=== PATIENT | female | born 1960 | race African-American/Black ===

== ENCOUNTER 2018-04-15 03:52 | Emergency (ER) | payer MEDICAID ==
[~2018-04-15] VITALS: Ht 165.1 cm; Wt 59.0 kg
[2018-04-15 04:17] VITALS: BP 155/83
== END 2018-04-15 07:29 | disposition left against medical advice (07) ==
LOC: ER 03:52
DX: F41.9 Anxiety disorder, unspecified (principal); Z53.21 Procedure and treatment not carried out due to patient leaving prior to being seen by health care provider

== ENCOUNTER 2018-12-20 11:42 | Emergency (ER) | payer MEDICAID ==
[~2018-12-20] VITALS: Ht 152.4 cm; Wt 64.0 kg
[2018-12-20 11:55] VITALS: BP 103/55
[2018-12-20] MEDS ORDERED: IPRATROPIUM BROMIDE (0.02%) 0.5MG/2.5ML NEB HHN STA (13:12)
[2018-12-20] MEDS ORDERED: ALBUTEROL (0.083%) 2.5MG/3ML NEB HHN STA (13:12)
[2018-12-20] MEDS ORDERED: PREDNISONE 20MG TABLET PO STA (13:12)
== END 2018-12-20 15:00 | disposition left against medical advice (07) ==
LOC: ER 11:49
DX: J45.909 Unspecified asthma, uncomplicated (principal); R10.13 Epigastric pain
CPT/HCPCS: 94640; 99283; J7512; J7611

== ENCOUNTER 2018-12-22 06:25 | Emergency (ER) | payer MEDICAID ==
[~2018-12-22] VITALS: Ht 152.4 cm; Wt 63.0 kg
[2018-12-22] MEDS ORDERED: ALBUTEROL (0.083%) 2.5MG/3ML NEB HHN STA (07:07)
[2018-12-22] MEDS ORDERED: METHYLPREDNISOLONE SOD SUCC 125 MG/2 ML VIAL IV STA (07:07)
[2018-12-22] MEDS ORDERED: IPRATROPIUM BROMIDE (0.02%) 0.5MG/2.5ML NEB HHN STA (07:07)
[2018-12-22 09:30] VITALS: BP 125/76
== END 2018-12-22 09:55 | disposition home or self-care (01) ==
LOC: ER 06:25
DX: J45.901 Unspecified asthma with (acute) exacerbation (principal); F17.200 Nicotine dependence, unspecified, uncomplicated
CPT/HCPCS: 71045; 93005; 94644; 96374; 99285; J2930; J7611; Z7610

== ENCOUNTER 2018-12-29 11:33 | Emergency (ER) | payer MEDICAID ==
[~2018-12-29] VITALS: Ht 152.4 cm; Wt 63.0 kg
[2018-12-29] MEDS ORDERED: SODIUM CHLORIDE 0.9% 1,000 ML IV ONE (12:44)
[2018-12-29] MEDS ORDERED: ALBUTEROL (0.083%) 2.5MG/3ML NEB HHN STA (12:44)
[2018-12-29] MEDS ORDERED: IPRATROPIUM BROMIDE (0.02%) 0.5MG/2.5ML NEB HHN STA (12:44)
[2018-12-29] MEDS ORDERED: METHYLPREDNISOLONE SOD SUCC 125 MG/2 ML VIAL IV STA (12:44)
[2018-12-29 13:20] LABS: BASOPHILS % 0.5 % (0.0-2.0); EOSINOPHILS % 4.7 % (0.0-5.0); HEMATOCRIT. 40.8 % (36.0-48.0); LYMPHOCYTES % 31.2 % (20.0-50.0); MEAN CORPUSCULAR HEMOGLOBIN 31.6 pg (28.0-32.0); MEAN CORPUSCULAR VOLUME 91.8 fL (81.0-99.0); MEAN PLATELET VOLUME 9.9 fl (7.4-10.4); MONOCYTES % 8.3 % (2.0-8.0); NEUTROPHILS % 55.3 % (40.0-76.0); PLATELET 176 x1000/uL (130-400); RED BLOOD CELL COUNT 4.44 mill/uL (4.2-5.4); RED CELL DISTRIBUTION WIDTH 12.7 % (11.6-14.6)
[2018-12-29 13:27] LABS: CHLORIDE 107 mEq/L (98-107); PROTHROMBIN TIME 10.6 sec (9.6-11.0)
[2018-12-29 15:45] LABS: CLARITY URINE CLEAR (CLEAR); COLOR URINE YELLOW (YELLOW); KETONES URINE NEGATIVE (NEGATIVE); LEUKOCYTE ESTERASE URINE NEGATIVE (NEGATIVE); NITRITE URINE NEGATIVE (NEGATIVE); OCCULT BLOOD URINE NEGATIVE (NEGATIVE); PROTEIN URINE NEGATIVE (NEGATIVE); SPECIFIC GRAVITY URINE 1.016 (1.005-1.030); UROBILINOGEN URINE 0.2 E.U./dL (0.2-1.0)
[2018-12-29 17:16] VITALS: BP 114/61
== END 2018-12-29 17:20 | disposition home or self-care (01) ==
LOC: ER 11:33
DX: J45.901 Unspecified asthma with (acute) exacerbation (principal); F17.200 Nicotine dependence, unspecified, uncomplicated
CPT/HCPCS: 36415; 71045; 80053; 81003; 84484; 85025; 85610; 93005; 94640; 96374; 99284; J2930; J7030; J7611

== ENCOUNTER 2019-09-16 03:18 | Emergency (ER) | payer MEDICAID ==
[~2019-09-16] VITALS: Ht 157.5 cm; Wt 68.0 kg
[2019-09-16] MEDS ORDERED: SODIUM CHLORIDE 0.9% 1,000 ML IV ONE (06:25)
[2019-09-16] MEDS ORDERED: ONDANSETRON HCL 4MG/2ML INJ IV STA (06:25)
[2019-09-16] MEDS ORDERED: MORPHINE SULFATE 4 MG/ML CPJ (NOT FOR IM USE) IV STA (06:25)
[2019-09-16 07:36] LABS: CHLORIDE 108 mEq/L (98-107)
[2019-09-16 07:47] LABS: BASOPHILS % 0.7 % (0.0-2.0); EOSINOPHILS % 2.8 % (0.0-5.0); HEMATOCRIT. 42.9 % (36.0-48.0); HEMOGLOBIN. 14.8 g/dL (12.0-16.0); LYMPHOCYTES % 27.6 % (20.0-50.0); MEAN CORPUSCULAR HEMOGLOBIN 31.8 pg (28.0-32.0); MEAN PLATELET VOLUME 9.8 fl (7.4-10.4); NEUTROPHILS % 62.9 % (40.0-76.0); PLATELET 148 x1000/uL (130-400); RED BLOOD CELL COUNT 4.67 mill/uL (4.2-5.4); RED CELL DISTRIBUTION WIDTH 12.5 % (11.6-14.6)
[2019-09-16 08:02] LABS: D-DIMER 0.29 mg/L FEU (<0.50)
[2019-09-16] MEDS ORDERED: SODIUM CHLORIDE 0.9% 1000ML BAG (SEPSIS BOLUS) IV ONE (08:15)
[2019-09-16 09:25] LABS: CLARITY URINE CLEAR (CLEAR); COLOR URINE YELLOW (YELLOW); KETONES URINE NEGATIVE (NEGATIVE); LEUKOCYTE ESTERASE URINE NEGATIVE (NEGATIVE); NITRITE URINE NEGATIVE (NEGATIVE); OCCULT BLOOD URINE NEGATIVE (NEGATIVE); PROTEIN URINE NEGATIVE (NEGATIVE); SPECIFIC GRAVITY URINE 1.019 (1.005-1.030); UROBILINOGEN URINE 0.2 E.U./dL (0.2-1.0)
[2019-09-16] MEDS ORDERED: KETOROLAC 30MG/ML VIAL IV ONE (09:30)
[2019-09-16] MEDS ORDERED: IOHEXOL-350 100 ML BOTTLE ONE (09:41)
[2019-09-16 11:47] VITALS: BP 128/89
== END 2019-09-16 11:54 | disposition home or self-care (01) ==
LOC: ER 03:18
DX: M54.6 Pain in thoracic spine (principal); E86.0 Dehydration; J45.909 Unspecified asthma, uncomplicated; I10 Essential (primary) hypertension; F17.290 Nicotine dependence, other tobacco product, uncomplicated
CPT/HCPCS: 36415; 71045; 71275; 74174; 80053; 81003; 83605; 83690; 83880; 84484; 85025; 85379; 85610; 87040; 87086; 93005; 96361; 96374; 96375; 99284; J1885; J2270; J2405; J7030; Q9967

== ENCOUNTER 2019-12-20 05:15 | Emergency (ER) | payer BC ==
[~2019-12-20] VITALS: Ht 152.4 cm; Wt 69.0 kg
[2019-12-20 05:27] VITALS: BP 150/81
[2019-12-20] MEDS ORDERED: PHENYTOIN SODIUM EXTENDED 100MG CAPSULE PO ONE (05:30)
== END 2019-12-20 05:33 | disposition home or self-care (01) ==
LOC: ER 05:15
DX: G40.909 Epilepsy, unspecified, not intractable, without status epilepticus (principal); J45.909 Unspecified asthma, uncomplicated; Z91.14 Patient's other noncompliance with medication regimen
CPT/HCPCS: 82962; 99283

== ENCOUNTER 2020-07-11 16:58 | Emergency (ER) | payer BC ==
[~2020-07-11] VITALS: Ht 170.2 cm; Wt 91.0 kg
[2020-07-11 17:56] LABS: BASOPHILS % 0.8 % (0.0-2.0); EOSINOPHILS % 3.9 % (0.0-5.0); HEMOGLOBIN. 13.9 g/dL (12.0-16.0); LYMPHOCYTES % 35.6 % (20.0-50.0); MEAN CORPUSCULAR HEMOGLOBIN 31.9 pg (28.0-32.0); MEAN PLATELET VOLUME 9.8 fl (7.4-10.4); MONOCYTES % 8.2 % (2.0-8.0); NEUTROPHILS % 51.5 % (40.0-76.0); PLATELET 166 x1000/uL (130-400); RED BLOOD CELL COUNT 4.34 mill/uL (4.2-5.4); RED CELL DISTRIBUTION WIDTH 12.3 % (11.6-14.6)
[2020-07-11 18:00] VITALS: BP 111/75
[2020-07-11 18:05] LABS: CHLORIDE 112 mEq/L (98-107)
[2020-07-11 18:11] LABS: ETHANOL BLOOD < 10 mg/dL
== END 2020-07-11 19:19 | disposition left against medical advice (07) ==
LOC: ER 16:58
DX: R45.1 Restlessness and agitation (principal)
CPT/HCPCS: 36415; 80053; 80320; 85025; 99283; G0480

== ENCOUNTER 2021-10-09 23:21 | Emergency (ER) | payer BC, MEDICAID ==
[~2021-10-09] VITALS: Ht 152.4 cm; Wt 77.0 kg
[2021-10-09] MEDS ORDERED: HYDROCODONE/ACETAMINOPHEN 5/325MG TABLET PO ONE (23:45)
[2021-10-10 02:47] VITALS: BP 114/66
== END 2021-10-10 02:49 | disposition home or self-care (01) ==
LOC: ER 23:21
DX: S00.83XA Contusion of other part of head, initial encounter (principal); R51.9 Headache, unspecified; R42 Dizziness and giddiness; M54.2 Cervicalgia; M54.89 Other dorsalgia; W11.XXXA Fall on and from ladder, initial encounter; Y93.89 Activity, other specified; Y92.038 Other place in apartment as the place of occurrence of the external cause
CPT/HCPCS: 71045; 72128; 72170; 93005; 99285

== ENCOUNTER 2022-01-15 12:51 | Emergency (ER) | payer MEDICAID ==
[~2022-01-15] VITALS: Ht 154.9 cm; Wt 77.0 kg
[2022-01-15 13:00] VITALS: BP 137/88
== END 2022-01-15 16:12 | disposition left against medical advice (07) ==
LOC: ER 13:08
DX: Z53.21 Procedure and treatment not carried out due to patient leaving prior to being seen by health care provider (principal)

== ENCOUNTER 2022-08-17 21:08 | Emergency (ER) | payer MEDICAID | END 2022-08-18 00:55 | disposition left against medical advice (07) | LOC: ER 21:08 | DX: Z53.21 Procedure and treatment not carried out due to patient leaving prior to being seen by health care provider (principal) ==

== ENCOUNTER 2022-09-26 00:30 | Emergency (ER) | payer MEDICAID ==
[~2022-09-26] VITALS: Ht 152.4 cm; Wt 80.0 kg
[2022-09-26] MEDS ORDERED: IBUPROFEN 600MG TABLET PO ONE (08:00)
[2022-09-26] MEDS ORDERED: IBUP-2029 MT (08:58)
[2022-09-26] MEDS ORDERED: CYCL10TA21 MT (08:58)
[2022-09-26 09:20] VITALS: BP 147/89
== END 2022-09-26 09:20 | disposition home or self-care (01) ==
LOC: ER 00:30
DX: M54.59 Other low back pain (principal); M25.511 Pain in right shoulder; G89.11 Acute pain due to trauma; R03.0 Elevated blood-pressure reading, without diagnosis of hypertension; M47.896 Other spondylosis, lumbar region; V49.49XA Driver injured in collision with other motor vehicles in traffic accident, initial encounter; Y93.89 Activity, other specified; Y92.488 Other paved roadways as the place of occurrence of the external cause
CPT/HCPCS: 72100; 73030; 99284

== ENCOUNTER 2023-01-24 04:41 | Emergency (ER) | payer MEDICAID ==
[~2023-01-24] VITALS: Ht 152.4 cm; Wt 78.7 kg
[~2023-01-24 04:41] MED LIST: CYCL10TA21 MT; IBUP-2029 MT
[2023-01-24 05:08] VITALS: BP 165/102
[2023-01-24 06:14] LABS: BASOPHILS % 0.6 % (0.0-2.0); EOSINOPHILS % 3.7 % (0.0-5.0); HEMOGLOBIN. 14.5 g/dL (12.0-16.0); LYMPHOCYTES % 29.9 % (20.0-50.0); MEAN CORPUSCULAR HEMOGLOBIN 32.3 pg (28.0-32.0); MONOCYTES % 6.4 % (2.0-8.0); NEUTROPHILS % 59.4 % (40.0-76.0); PLATELET 208 x1000/uL (130-400); RED CELL DISTRIBUTION WIDTH 12.4 % (11.6-14.6)
[2023-01-24 06:21] LABS: CHLORIDE 110 mEq/L (98-107)
[2023-01-24 08:35] LABS: CLARITY URINE CLEAR (CLEAR); COLOR URINE YELLOW (YELLOW); KETONES URINE NEGATIVE (NEGATIVE); LEUKOCYTE ESTERASE URINE NEGATIVE (NEGATIVE); NITRITE URINE NEGATIVE (NEGATIVE); OCCULT BLOOD URINE NEGATIVE (NEGATIVE); PH URINE 6.5 (4.5-8.0); PROTEIN URINE NEGATIVE (NEGATIVE); SPECIFIC GRAVITY URINE 1.022 (1.005-1.030); UROBILINOGEN URINE 0.2 E.U./dL (0.2-1.0)
== END 2023-01-24 11:55 | disposition left against medical advice (07) ==
LOC: ER 05:01
DX: Z53.21 Procedure and treatment not carried out due to patient leaving prior to being seen by health care provider (principal)
CPT/HCPCS: 36415; 71045; 76705; 80053; 81003; 85025; 99281